=== PATIENT | male | born 1940 | race Caucasian/White ===

== ENCOUNTER 2018-07-20 14:58 | Emergency (ER) | payer OTHER ==
[2018-07-20] MEDS ORDERED: ONDANSETRON HCL 4 MG/2 ML VIAL ONE (15:56)
[2018-07-20] MEDS ORDERED: ACETAMINOPHEN EXTRA STRENGTH 500 MG TABLET ONE (15:56)
[2018-07-20] MEDS ORDERED: SODIUM CHLORIDE 0.9% 1000ML 1,000 ML IV ONE (15:56)
[2018-07-20 15:59] LABS: BASOPHILS % (AUTO) 0.5 % (0.0-5.0); EOSINOPHILS % (AUTO) 0.5 % (0.0-8.0); HEMATOCRIT 43.1 % (42-54); LYMPHOCYTES % (AUTO) 8.8 % (21.0-51.0); MEAN CORPUSCULAR HEMOGLOBIN 35.4 pg (27.0-33.0); MEAN CORPUSCULAR VOLUME 101.2 fL (79-99); NEUTROPHILS % (AUTO) 76.2 % (40.0-77.0); PLATELET COUNT (AUTO) 256 K/uL (130-400); RED BLOOD CELL COUNT(AUTO) 4.26 MIL/uL (4.50-6.20); RED CELL DISTRIBUTION WIDTH 12.8 % (11.0-15.5); WHITE BLOOD COUNT (AUTO) 8.3 K/uL (4.8-10.8)
[2018-07-20 16:08] LABS: CREATININE 1.1 mg/dL (0.5-1.5); POTASSIUM 4.7 mmol/L (3.5-5.1)
[2018-07-20 16:13] LABS: ALBUMIN 3.7 g/dL (3.5-5.0); BILIRUBIN,TOTAL 0.9 mg/dL (0.2-1.0); TOTAL PROTEIN, SERUM 7.6 g/dL (6.0-8.3)
== END 2018-07-20 17:53 | disposition home or self-care (01) ==
LOC: EDH 14:58
DX: A08.4 Viral intestinal infection, unspecified (principal); I10 Essential (primary) hypertension; I25.10 Atherosclerotic heart disease of native coronary artery without angina pectoris; E78.5 Hyperlipidemia, unspecified; J44.9 Chronic obstructive pulmonary disease, unspecified; Z86.73 Personal history of transient ischemic attack (TIA), and cerebral infarction without residual deficits
CPT/HCPCS: 36415; 71045; 80053; 85025; 87804 ×2; 93005; 96361; 96374; 99284; J2405; J7030

== ENCOUNTER 2018-09-11 10:40 | Observation (INO) | payer OTHER ==
[2018-09-11 11:02] LABS: BASOPHILS % (AUTO) 0.6 % (0.0-5.0); EOSINOPHILS % (AUTO) 1.4 % (0.0-8.0); HEMATOCRIT 41.2 % (42-54); LYMPHOCYTES % (AUTO) 16.1 % (21.0-51.0); MEAN CORPUSCULAR HGB CONC 34.3 g/dL (32.0-36.0); MEAN CORPUSCULAR VOLUME 101.9 fL (79-99); MONOCYTES % (AUTO) 12.5 % (3.0-13.0); NEUTROPHILS % (AUTO) 69.4 % (40.0-77.0); PLATELET COUNT (AUTO) 175 K/uL (130-400); RED BLOOD CELL COUNT(AUTO) 4.05 MIL/uL (4.50-6.20); WHITE BLOOD COUNT (AUTO) 7.3 K/uL (4.8-10.8)
[2018-09-11] MEDS ORDERED: ASPIRIN 325 MG TABLET ONE (11:02)
[2018-09-11 11:13] LABS: CREATININE 1.2 mg/dL (0.5-1.5); POTASSIUM 4.1 mmol/L (3.5-5.1)
[2018-09-11 11:24] LABS: ALBUMIN 3.7 g/dL (3.5-5.0); BILIRUBIN,TOTAL 0.9 mg/dL (0.2-1.0); TOTAL PROTEIN, SERUM 7.6 g/dL (6.0-8.3)
[2018-09-11 11:25] LABS: PARTIAL THROMBOPLASTIN TIME 26.6 SEC (26.3-35.5); PROTHROMBIN TIME 10.5 SEC (9.6-11.6)
[2018-09-11] MEDS ORDERED: NITROGLYCERIN 0.4 MG SL TAB SL ONE (12:43)
[2018-09-11] MEDS ORDERED: SODIUM CHLORIDE 0.9% 1000ML 1,000 ML IV SCH (13:10)
[2018-09-11] MEDS ORDERED: ACETAMINOPHEN 325 MG TAB PO PRN ×2 (13:15)
[2018-09-11] MEDS ORDERED: MORPHINE SULFATE 2 MG/ML 1ML SYG IV PRN (13:15)
[2018-09-11] MEDS ORDERED: ONDANSETRON HCL 4 MG/2 ML VIAL IV PRN (13:15)
[2018-09-11] MEDS ORDERED: HYDRALAZINE HCL 20 MG/ML VIAL IV PRN (13:15)
[2018-09-11] MEDS ORDERED: NITROGLYCERIN 1GM/1 INCH PACKET TD SCH (13:15)
[2018-09-11] MEDS ORDERED: LACTULOSE 20 GM/30 ML UDCUP PO PRN (13:15)
[2018-09-11 14:02] LABS: HEMOGLOBIN A1C 5.6 % (4.0-6.0)
[2018-09-11 14:04] LABS: MAGNESIUM 1.4 mg/dL (1.80-2.40); PHOSPHORUS 3.4 mg/dL (2.5-4.9)
[2018-09-11] MEDS ORDERED: MAGNESIUM 2GM PREMIX 50ML 100 ML IV ONE (14:38)
[2018-09-11 14:40] LABS: CREATINE KINASE, TOTAL 103 U/L (21-232); MYOGLOBIN 55 ng/mL (10-92); TROPONIN I < 0.04 ng/mL (0.00-0.06)
[2018-09-11] MEDS ORDERED: KETOROLAC TROMETHAMINE 30MG/ML IV SCH (15:30)
[2018-09-11] MEDS ORDERED: METOPROLOL TARTRATE 25 MG TAB PO SCH (21:00)
[2018-09-12] MEDS ORDERED: ENOXAPARIN SODIUM 40 MG/0.4 ML SYRINGE SQ SCH (09:00)
[2018-09-12] MEDS ORDERED: ASPIRIN 325 MG TABLET PO SCH (09:00)
== END 2018-09-11 18:48 | disposition home or self-care (01) ==
LOC: EDH 10:40 → EDHIP 13:10
PROVIDERS: ADMIT Internal Medicine; ATTEND Internal Medicine
DX: R07.89 Other chest pain (principal); E78.5 Hyperlipidemia, unspecified; G89.29 Other chronic pain; I10 Essential (primary) hypertension; I25.10 Atherosclerotic heart disease of native coronary artery without angina pectoris; J44.9 Chronic obstructive pulmonary disease, unspecified; I44.0 Atrioventricular block, first degree; Z87.891 Personal history of nicotine dependence; Z95.1 Presence of aortocoronary bypass graft; Z95.5 Presence of coronary angioplasty implant and graft; Z79.899 Other long term (current) drug therapy
CPT/HCPCS: 36415; 71045; 80053; 82550 ×2; 83036; 83735; 83874 ×2; 83880; 84100; 84484 ×2; 85025; 85610; 85730; 93005; 99284; G0378 ×6; J3475

== ENCOUNTER 2021-08-20 13:02 | Emergency (ER) | payer OTHER ==
[~2021-08-20] VITALS: Ht 182.9 cm; Wt 76.2 kg
[2021-08-20 13:35] LABS: BASOPHILS % (AUTO) 0.5 % (0.0-5.0); EOSINOPHILS % (AUTO) 3.1 % (0.0-8.0); HEMATOCRIT 40.4 % (42-54); LYMPHOCYTES % (AUTO) 13.9 % (21.0-51.0); MEAN CORPUSCULAR HEMOGLOBIN 33.3 pg (27.0-33.0); MEAN CORPUSCULAR HGB CONC 33.9 g/dL (32.0-36.0); MEAN CORPUSCULAR VOLUME 98.3 fL (79-99); MONOCYTES % (AUTO) 9.4 % (3.0-13.0); NEUTROPHILS % (AUTO) 72.8 % (40.0-77.0); PLATELET COUNT (AUTO) 200 K/uL (130-400); RED BLOOD CELL COUNT(AUTO) 4.11 MIL/uL (4.50-6.20); RED CELL DISTRIBUTION WIDTH 13.4 % (11.0-15.5); WHITE BLOOD COUNT (AUTO) 8.8 K/uL (4.8-10.8)
[2021-08-20 13:44] LABS: APPEARANCE,URINE Clear (CLEAR); BILIRUBIN,URINE Negative (NEGATIVE); COLOR,URINE Yellow (YELLOW); GLUCOSE, URINE (UA) Negative (NEGATIVE); KETONES,URINE Negative (NEGATIVE); LEUKOCYTE ESTERASE ,URINE Negative (NEGATIVE); NITRATE,URINE Negative (NEGATIVE); OCCULT BLOOD,URINE Negative (NEGATIVE); PROTEIN,URINE Negative (NEGATIVE)
[2021-08-20 13:48] LABS: BILIRUBIN,TOTAL 0.9 mg/dL (0.2-1.0); CREATININE 1.2 mg/dL (0.5-1.5); POTASSIUM 4.2 mmol/L (3.5-5.1); TOTAL PROTEIN, SERUM 7.5 g/dL (6.0-8.3)
[2021-08-20 14:06] LABS: B-TYPE NATRIURETIC PEPTIDE 436 pg/mL (0-100)
[2021-08-20] MEDS ORDERED: 0.9% NACL 500ML IV.SOLN 500 ML IV SCH (14:30)
[2021-08-20] MEDS ORDERED: POTASSIUM BICARB/CIT AC 25 MEQ TABLET.EFF PO ONE (14:30)
[2021-08-20] MEDS ORDERED: FUROSEMIDE 40MG VIAL IV ONE (14:30)
[2021-08-20] MEDS ORDERED: FURO-152 PO (14:43)
[2021-08-20 14:56] VITALS: BP 158/70
== END 2021-08-20 15:27 | disposition home or self-care (01) ==
LOC: EDH 13:02
DX: E87.70 Fluid overload, unspecified (principal); E87.1 Hypo-osmolality and hyponatremia; I48.91 Unspecified atrial fibrillation; E78.00 Pure hypercholesterolemia, unspecified; I10 Essential (primary) hypertension; J44.9 Chronic obstructive pulmonary disease, unspecified; I25.10 Atherosclerotic heart disease of native coronary artery without angina pectoris; Z79.899 Other long term (current) drug therapy; Z95.1 Presence of aortocoronary bypass graft
CPT/HCPCS: 36415; 71045; 80053; 81003; 83880; 84484; 85025; 93005; 99284; J1940; J7040

== ENCOUNTER 2022-12-26 11:58 | Inpatient (IN) | payer OTHER ==
[~2022-12-26] VITALS: Ht 188 cm; Wt 61.6 kg
[~2022-12-26 11:58] MED LIST: FURO-152 PO
[2022-12-26 12:38] LABS: BASOPHILS # (AUTO) 0.05 K/uL (0.00-0.20); BASOPHILS % (AUTO) 0.5 % (0.0-5.0); EOSINOPHILS # (AUTO) 0.18 K/uL (0.00-0.70); EOSINOPHILS % (AUTO) 1.9 % (0.0-8.0); HEMATOCRIT 37.9 % (42-54); IMMATURE GRANULOCYTE ABSOLUTE 0.04 K/uL (0-1); LYMPHOCYTES # (AUTO) 1.1 K/uL (1.0-4.8); LYMPHOCYTES % (AUTO) 11.3 % (21.0-51.0); MEAN CORPUSCULAR HEMOGLOBIN 31.9 pg (27.0-33.0); MEAN CORPUSCULAR VOLUME 96.7 fL (79-99); NEUTROPHILS # (AUTO) 6.9 K/uL (1.8-7.7); NEUTROPHILS % (AUTO) 74.9 % (40.0-77.0); PLATELET COUNT (AUTO) 305 K/uL (130-400); RED BLOOD CELL COUNT(AUTO) 3.92 MIL/uL (4.50-6.20); RED CELL DISTRIBUTION WIDTH 16.9 % (11.0-15.5); WHITE BLOOD COUNT (AUTO) 9.3 K/uL (4.8-10.8)
[2022-12-26 12:47] LABS: CREATININE 1.6 mg/dL (0.5-1.5); POTASSIUM 3.9 mmol/L (3.5-5.1)
[2022-12-26 12:52] LABS: ALBUMIN 2.8 g/dL (3.5-5.0); BILIRUBIN,TOTAL 0.8 mg/dL (0.2-1.0); TOTAL PROTEIN, SERUM 6.7 g/dL (6.0-8.3)
[2022-12-26] MEDS ORDERED: 0.9%NACL 1000ML 1,000 ML IV ONE (13:00)
[2022-12-26 13:30] LABS: INR 1.06 (0.85-1.15); PROTHROMBIN TIME 12.2 SEC (9.6-11.6)
[2022-12-26 13:32] LABS: PARTIAL THROMBOPLASTIN TIME 31.2 SEC (26.3-35.5)
[2022-12-26 14:12] LABS: APPEARANCE,URINE CLEAR (CLEAR); BILIRUBIN,URINE NEGATIVE (NEGATIVE); COLOR,URINE YELLOW (YELLOW); GLUCOSE, URINE (UA) NEGATIVE (NEGATIVE); KETONES,URINE NEGATIVE (NEGATIVE); LEUKOCYTE ESTERASE ,URINE NEGATIVE Leu/uL (NEGATIVE); NITRATE,URINE NEGATIVE (NEGATIVE); OCCULT BLOOD,URINE NEGATIVE (NEGATIVE); PROTEIN,URINE 30 mg/dL (NEGATIVE)
[2022-12-26 14:14] LABS: ADD UA MICROSCOPIC YES
[2022-12-26 14:16] LABS: RBC,URINE 0-1 /HPF (0-1); SQUAMOUS EPITHELIAL CELL,UR RARE /HPF (0-2); WBC,URINE 0-1 /HPF (0-1)
[2022-12-26] MEDS ORDERED: ZOSYN 3.375GM +NS 50ML IVPB ONE (14:30)
[2022-12-26] MEDS ORDERED: CEFEPIME HCL 2 GM VIAL IVPB SCH (15:30)
[2022-12-26] MEDS ORDERED: PHARMACY COMMUNICATION MISC SCH (15:30)
[2022-12-26] MEDS ORDERED: VANCOMYCIN PROTOCOL PER PHARMACY IV SCH (15:30)
[2022-12-26] MEDS ORDERED: VANCOMYCIN 1G/250ML KIT 250 ML IV SCH (16:00)
[2022-12-26 16:38] LABS: CRP QUANTITATIVE 20.2 mg/L (0.00-9.0)
[2022-12-26] MEDS ORDERED: ATOR-2 PO (18:28)
[2022-12-26] MEDS ORDERED: LISI10TA24 PO (18:28)
[2022-12-26] MEDS: CLONIDINE HCL 0.1 MG TABLET PO SCH ×2 (18:59→20:26)
[2022-12-26] MEDS: ONDANSETRON 4MG INJ IVP PRN (20:26)
[2022-12-26] MEDS ORDERED: MORPHINE 2 MG SYG IVP PRN (20:30)
[2022-12-26] MEDS: LISINOPRIL 10 MG TABLET PO SCH (22:30)
[2022-12-26] MEDS ORDERED: LORAZEPAM 2 MG/ML 1 ML VIAL IVP PRN (23:00)
[2022-12-26] MEDS ORDERED: CHLORDIAZEPOXIDE HCL 25 MG CAP PO PRN (23:00)
[2022-12-26] MEDS ORDERED: PHARMACY COMMUNICATION MISC PRN (23:00)
[2022-12-27] MEDS ORDERED: MAGN400T40 PO (08:29)
[2022-12-27] MEDS ORDERED: POTA99TA17 PO (08:29)
[2022-12-27] MEDS ORDERED: VITA15DR3 PO (08:29)
[2022-12-27] MEDS ORDERED: ASCO500T19 PO (08:29)
[2022-12-27] MEDS ORDERED: UBID100C10 PO (08:29)
[2022-12-27] MEDS ORDERED: VITA1CAP PO (08:29)
[2022-12-27] MEDS ORDERED: CHOL200013 PO (08:29)
[2022-12-27] MEDS ORDERED: AEC81 PO (08:29)
[2022-12-27] MEDS: LISINOPRIL 10 MG TABLET PO SCH ×2 (09:00→20:03)
[2022-12-27] MEDS ORDERED: 0.9% NACL 250ML 250 ML IV SCH (09:00)
[2022-12-27] MEDS: THIAMINE HCL 100 MG TABLET PO SCH (09:26)
[2022-12-27] MEDS: FOLIC ACID 1 MG TABLET PO SCH (09:26)
[2022-12-27] MEDS: CEFEPIME HCL 2 GM VIAL IVPB SCH ×2 (09:26→20:04)
[2022-12-27] MEDS: ATORVASTATIN 40 MG TABLET PO SCH (09:26)
[2022-12-27] MEDS: VANCOMYCIN 750MG VIAL IVPB SCH (10:21)
[2022-12-27 13:12] LABS: BASOPHILS # (AUTO) 0.02 K/uL (0.00-0.20); BASOPHILS % (AUTO) 0.2 % (0.0-5.0); EOSINOPHILS # (AUTO) 0.39 K/uL (0.00-0.70); EOSINOPHILS % (AUTO) 4.2 % (0.0-8.0); HEMATOCRIT 38.2 % (42-54); IMMATURE GRANULOCYTE ABSOLUTE 0.05 K/uL (0-1); LYMPHOCYTES # (AUTO) 0.7 K/uL (1.0-4.8); LYMPHOCYTES % (AUTO) 7.4 % (21.0-51.0); MEAN CORPUSCULAR HEMOGLOBIN 32.3 pg (27.0-33.0); MEAN CORPUSCULAR HGB CONC 32.2 g/dL (32.0-36.0); MEAN CORPUSCULAR VOLUME 100.3 fL (79-99); MONOCYTES # (AUTO) 0.8 K/uL (0.1-1.0); MONOCYTES % (AUTO) 8.1 % (3.0-13.0); NEUTROPHILS # (AUTO) 7.4 K/uL (1.8-7.7); NEUTROPHILS % (AUTO) 79.6 % (40.0-77.0); PLATELET COUNT (AUTO) 278 K/uL (130-400); RED BLOOD CELL COUNT(AUTO) 3.81 MIL/uL (4.50-6.20); WHITE BLOOD COUNT (AUTO) 9.3 K/uL (4.8-10.8)
[2022-12-27 13:24] LABS: CREATININE 1.5 mg/dL (0.5-1.5); POTASSIUM 4.4 mmol/L (3.5-5.1)
[2022-12-27 13:40] VITALS: BP 123/55; PULSE 58; RESP 24
[2022-12-27 16:00] VITALS: BP 111/56; PULSE 59; RESP 16
[2022-12-27] MEDS ORDERED: IOHEXOL-350 75 ML VIAL IV ONE (16:45)
[2022-12-27] MEDS ORDERED: IOHEXOL-350 50ML VIAL IV ONE (16:45)
[2022-12-27 19:00] VITALS: BP 130/69; PULSE 65; RESP 18
[2022-12-27 19:25] VITALS: O2SAT 97; O2SAT 98
[2022-12-27 23:46] VITALS: BP 130/77; PULSE 84; RESP 18
[2022-12-28 04:09] VITALS: BP 136/70; PULSE 73; RESP 19
[2022-12-28 08:00] VITALS: BP 129/80; PULSE 100; RESP 20; O2SAT 95
[2022-12-28 08:29] LABS: BASOPHILS # (AUTO) 0.05 K/uL (0.00-0.20); BASOPHILS % (AUTO) 0.5 % (0.0-5.0); EOSINOPHILS # (AUTO) 0.37 K/uL (0.00-0.70); EOSINOPHILS % (AUTO) 3.6 % (0.0-8.0); IMMATURE GRANULOCYTE ABSOLUTE 0.06 K/uL (0-1); LYMPHOCYTES # (AUTO) 0.9 K/uL (1.0-4.8); LYMPHOCYTES % (AUTO) 8.5 % (21.0-51.0); MEAN CORPUSCULAR HEMOGLOBIN 32.1 pg (27.0-33.0); MEAN CORPUSCULAR HGB CONC 32.2 g/dL (32.0-36.0); MEAN CORPUSCULAR VOLUME 99.8 fL (79-99); MONOCYTES # (AUTO) 0.8 K/uL (0.1-1.0); NEUTROPHILS % (AUTO) 78.8 % (40.0-77.0); PLATELET COUNT (AUTO) 315 K/uL (130-400); RED BLOOD CELL COUNT(AUTO) 4.11 MIL/uL (4.50-6.20); RED CELL DISTRIBUTION WIDTH 16.8 % (11.0-15.5); WHITE BLOOD COUNT (AUTO) 10.2 K/uL (4.8-10.8)
[2022-12-28 08:43] LABS: CREATININE 1.6 mg/dL (0.5-1.5); POTASSIUM 4.2 mmol/L (3.5-5.1); VANCOMYCIN TROUGH 10.3 UG/ML (10.0-20.0)
[2022-12-28] MEDS: FOLIC ACID 1 MG TABLET PO SCH (10:01)
[2022-12-28] MEDS: ATORVASTATIN 40 MG TABLET PO SCH (10:01)
[2022-12-28] MEDS: LISINOPRIL 10 MG TABLET PO SCH ×2 (10:01→19:41)
[2022-12-28] MEDS: THIAMINE HCL 100 MG TABLET PO SCH (10:01)
[2022-12-28] MEDS: VANCOMYCIN 750MG VIAL IVPB SCH (10:02)
[2022-12-28] MEDS: CEFEPIME HCL 2 GM VIAL IVPB SCH ×2 (10:02→19:41)
[2022-12-28 11:37] VITALS: BP 132/61; PULSE 71; RESP 18
[2022-12-28 16:00] VITALS: BP 138/73; PULSE 74; RESP 18
[2022-12-28 20:05] VITALS: BP 130/79; PULSE 74; RESP 20
[2022-12-28 23:39] VITALS: BP 151/79; PULSE 77; RESP 18
[2022-12-29] VITALS (7 sets, daily range): BP systolic 114–162; BP diastolic 59–86; PULSE 60–109; RESP 18–22; O2SAT 96
[2022-12-29 05:20] LABS: BASOPHILS # (AUTO) 0.05 K/uL (0.00-0.20); BASOPHILS % (AUTO) 0.5 % (0.0-5.0); EOSINOPHILS # (AUTO) 0.42 K/uL (0.00-0.70); EOSINOPHILS % (AUTO) 4.4 % (0.0-8.0); HEMATOCRIT 36.9 % (42-54); IMMATURE GRANULOCYTE ABSOLUTE 0.06 K/uL (0-1); LYMPHOCYTES # (AUTO) 0.7 K/uL (1.0-4.8); LYMPHOCYTES % (AUTO) 7.2 % (21.0-51.0); MEAN CORPUSCULAR HEMOGLOBIN 32.3 pg (27.0-33.0); MEAN CORPUSCULAR HGB CONC 32.5 g/dL (32.0-36.0); MEAN CORPUSCULAR VOLUME 99.2 fL (79-99); MONOCYTES # (AUTO) 0.9 K/uL (0.1-1.0); MONOCYTES % (AUTO) 9.6 % (3.0-13.0); NEUTROPHILS # (AUTO) 7.4 K/uL (1.8-7.7); NEUTROPHILS % (AUTO) 77.7 % (40.0-77.0); PLATELET COUNT (AUTO) 266 K/uL (130-400); RED BLOOD CELL COUNT(AUTO) 3.72 MIL/uL (4.50-6.20); RED CELL DISTRIBUTION WIDTH 16.7 % (11.0-15.5); WHITE BLOOD COUNT (AUTO) 9.5 K/uL (4.8-10.8)
[2022-12-29 05:51] LABS: ALBUMIN 2.4 g/dL (3.5-5.0); BILIRUBIN,TOTAL 0.6 mg/dL (0.2-1.0); CREATININE 1.5 mg/dL (0.5-1.5); POTASSIUM 4.4 mmol/L (3.5-5.1)
[2022-12-29] MEDS: CEFEPIME HCL 2 GM VIAL IVPB SCH ×2 (08:52→19:47)
[2022-12-29] MEDS: LISINOPRIL 10 MG TABLET PO SCH ×2 (08:52→19:48)
[2022-12-29] MEDS: ASPIRIN 81MG CHEW TAB PO SCH (08:52)
[2022-12-29] MEDS: FOLIC ACID 1 MG TABLET PO SCH (08:52)
[2022-12-29] MEDS: THIAMINE HCL 100 MG TABLET PO SCH (08:53)
[2022-12-29] MEDS: ATORVASTATIN 40 MG TABLET PO SCH (08:53)
[2022-12-29] MEDS: ENOXAPARIN SODIUM 30 MG/0.3 ML SQ SCH (08:53)
[2022-12-29] MEDS: VANCOMYCIN 750MG VIAL IVPB SCH (08:54)
[2022-12-30] VITALS (54 sets, daily range): BP systolic 88–189; BP diastolic 46–111; PULSE 42–108; RESP 13–26; TEMP 97.9; O2SAT 96–100
[2022-12-30 06:15] LABS: HEMATOCRIT 36.7 % (42-54); MEAN CORPUSCULAR HEMOGLOBIN 32.5 pg (27.0-33.0); MEAN CORPUSCULAR VOLUME 98.7 fL (79-99); RED BLOOD CELL COUNT(AUTO) 3.72 MIL/uL (4.50-6.20); RED CELL DISTRIBUTION WIDTH 16.6 % (11.0-15.5)
[2022-12-30 06:35] LABS: INR 1.05 (0.85-1.15); PROTHROMBIN TIME 12.1 SEC (9.6-11.6)
[2022-12-30 06:36] LABS: PARTIAL THROMBOPLASTIN TIME 31.3 SEC (26.3-35.5)
[2022-12-30 06:45] LABS: CREATININE 1.5 mg/dL (0.5-1.5); POTASSIUM 4.1 mmol/L (3.5-5.1)
[2022-12-30] MEDS: ASPIRIN 81MG CHEW TAB PO SCH (09:00)
[2022-12-30] MEDS: FOLIC ACID 1 MG TABLET PO SCH (09:00)
[2022-12-30] MEDS: THIAMINE HCL 100 MG TABLET PO SCH (09:00)
[2022-12-30] MEDS: ENOXAPARIN SODIUM 30 MG/0.3 ML SQ SCH (09:00)
[2022-12-30] MEDS: ATORVASTATIN 40 MG TABLET PO SCH (09:00)
[2022-12-30] MEDS: LISINOPRIL 10 MG TABLET PO SCH ×2 (09:00→20:16)
[2022-12-30] MEDS: CEFEPIME HCL 2 GM VIAL IVPB SCH (09:02)
[2022-12-30] MEDS ORDERED: GLYCOPYRROLATE 1 MG/5 ML SYRINGE ONE ×2 (09:28→11:15)
[2022-12-30] MEDS ORDERED: PROPOFOL 10 MG/ML 20ML VIAL IV ONE (09:28)
[2022-12-30] MEDS ORDERED: NEOSTIGMINE 5MG/5ML SYR IV ONE ×2 (09:28→11:15)
[2022-12-30] MEDS ORDERED: ONDANSETRON 4MG INJ ONE (09:28)
[2022-12-30] MEDS ORDERED: ROCURONIUM 10MG/1ML SYR 10 MG/ML ML ONE (09:28)
[2022-12-30] MEDS ORDERED: SUCCINYLCHOLINE 200MG/10ML SYR ONE (09:28)
[2022-12-30] MEDS ORDERED: LIDOCAINE PF 100MG/5ML (2%) SYRINGE 5ML ONE (09:28)
[2022-12-30] MEDS ORDERED: DEXAMETHASONE SOD PHOSPHATE 10MG/ML 1ML VIAL ONE (09:28)
[2022-12-30] MEDS ORDERED: FENTANYL CITRATE PF 50 MCG/1 ML 2ML VIAL ONE (09:29)
[2022-12-30 09:38] LABS: SARS-CoV-2, RNA, NAAT NEGATIVE SARS CoV-2 (NEGATIVE)
[2022-12-30] MEDS ORDERED: CEFAZOLIN SODIUM 1 GM VIAL ONE (09:49)
[2022-12-30] MEDS ORDERED: CEFAZOLIN SODIUM 2 GM VIAL IVPB ONE (09:50)
[2022-12-30] MEDS ORDERED: EPINEPHRINE PF 1MG (1:1,000) 1 MG/ML AMP ONE (10:30)
[2022-12-30] MEDS ORDERED: SODIUM BICARB 8.4% 50ML SYRINGE ONE (10:34)
[2022-12-30 10:56] LABS: ABG BASE EXCESS -7.6 mmol/L (-2.0-3.0); ABG OXYGEN SATURATION 99.1 % (95.0-99.0); ABG PCO2 49 mmHg (35-48); ABG PH 7.228 (7.35-7.450); CARBON MONOXIDE 0.3; HHb 0.9; PO2, ARTERIAL BG 202.4 mmHg (83.0-108.0); VENT MODE, BG OR (ROOM AIR)
[2022-12-30] MEDS ORDERED: ACETAMINOPHEN 325 MG TAB PO PRN (11:00)
[2022-12-30] MEDS ORDERED: TRAMADOL HCL 50 MG TABLET PO PRN ×2 (11:00)
[2022-12-30] MEDS ORDERED: DEXTROSE 50%-WATER 50 ML DISP.SYRIN IV ONE (11:05)
[2022-12-30] MEDS ORDERED: MEPERIDINE-PF 25 MG/ML SYG ONE (11:38)
[2022-12-30] MEDS ORDERED: IPRATROPIUM/ALBUTEROL SULFATE 3 ML SOLUTION IH ONE (12:30)
[2022-12-30] MEDS: ONDANSETRON 4MG INJ IVP PRN (12:33)
[2022-12-30] MEDS ORDERED: CEFAZOLIN SODIUM 2 GM VIAL IVPB PRN (13:00)
[2022-12-30 13:38] LABS: ABG BASE EXCESS -5.4 mmol/L (-2.0-3.0); ABG HCO3 22.6 mmol/L (21.0-28.0); ABG OXYGEN SATURATION 87.5 % (95.0-99.0); ABG PCO2 54 mmHg (35-48); ABG PH 7.241 (7.35-7.450); PO2, ARTERIAL BG 62.2 mmHg (83.0-108.0); VENT MODE, BG NRBM (ROOM AIR)
[2022-12-30] MEDS ORDERED: DEXMEDETOMIDINE 400MCG/NS100ML IV SCH (15:00)
[2022-12-30] MEDS ORDERED: CALCIUM GLUC 1GM 1 GM in 0.9%NACL 50ML 50 ML IV PRN (15:00)
[2022-12-30] MEDS ORDERED: POTASSIUM PHOS 15 mMOL+NS250ML 250 ML IV PRN (15:00)
[2022-12-30] MEDS ORDERED: 0.9% NACL 500ML IV.SOLN 500 ML IV SCH (15:00)
[2022-12-30 15:04] LABS: ABG BASE EXCESS -3.3 mmol/L (-2.0-3.0); ABG HCO3 21.5 mmol/L (21.0-28.0); ABG OXYGEN SATURATION 99.5 % (95.0-99.0); ABG PCO2 38 mmHg (35-48); CARBON MONOXIDE 1.1; DEVICE COMMENT RR RICHARD RN; HHb 0.5; PO2, ARTERIAL BG 272.5 mmHg (83.0-108.0); VENT MODE, BG BIPAP 12-5 (ROOM AIR)
[2022-12-30] MEDS: SODIUM BICARB 50MEQ 50ML VIAL IV PRN ×2 (15:30→20:13)
[2022-12-30] MEDS ORDERED: LORAZEPAM 2 MG/ML 1 ML VIAL IVP PRN (15:30)
[2022-12-30] MEDS ORDERED: CEFEPIME HCL 2 GM VIAL IVPB SCH (15:30)
[2022-12-30] MEDS ORDERED: HYDRALAZINE 20MG/ML VIAL IV PRN (15:30)
[2022-12-30] MEDS ORDERED: THIAMINE HCL 100 MG/ML 2ML VIAL IVP ONE (15:30)
[2022-12-30] MEDS ORDERED: LABETALOL 20MG VIAL IV PRN (15:30)
[2022-12-30] MEDS ORDERED: NICARDIPINE 25MG INJ 25 MG in 0.9% NACL 250ML 240 ML IV SCH (16:00)
[2022-12-30] MEDS: DOXYCYCLINE 100MG+NS 250ML IV SCH (17:04)
[2022-12-30] MEDS: SOLU-MEDROL 40MG VIAL IVP SCH (17:04)
[2022-12-30] MEDS: FUROSEMIDE 40MG VIAL IV SCH (17:05)
[2022-12-30] MEDS: CEFEPIME HCL 1 GM VIAL IVPB SCH (17:12)
[2022-12-30] MEDS ORDERED: IPRATROPIUM 0.5 MG/2.5 ML INH IH SCH (18:00)
[2022-12-30 18:02] LABS: INR 1.09 (0.85-1.15); PROTHROMBIN TIME 12.6 SEC (9.6-11.6)
[2022-12-30 18:04] LABS: PARTIAL THROMBOPLASTIN TIME 27.7 SEC (26.3-35.5)
[2022-12-30] MEDS: BUDESONIDE 0.5 MG/2 ML INH IH SCH (18:48)
[2022-12-30] MEDS: IPRATROPIUM/ALBUTEROL SULFATE 3 ML SOLUTION IH SCH ×2 (18:48→23:32)
[2022-12-30 19:21] LABS: ABG BASE EXCESS -2.5 mmol/L (-2.0-3.0); ABG HCO3 19.8 mmol/L (21.0-28.0); ABG OXYGEN SATURATION 95.3 % (95.0-99.0); ABG PCO2 27 mmHg (35-48); ABG PH 7.488 (7.35-7.450); CARBON MONOXIDE 0.5; HHb 4.7; PO2, ARTERIAL BG 75.6 mmHg (83.0-108.0)
[2022-12-30] MEDS ORDERED: CALCIUM GLUC 1GM/10ML VIAL ONE ×2 (19:50→22:27)
[2022-12-30] MEDS: POTASSIUM CHLORIDE 20MEQ/100ML 100 ML IV PRN ×2 (20:14→22:33)
[2022-12-30] MEDS: HYDRALAZINE 20MG/ML VIAL IV PRN (20:18)
[2022-12-30] MEDS ORDERED: VANCOMYCIN 750MG VIAL IVPB SCH (21:00)
[2022-12-30 22:21] LABS: ABG HCO3 25.8 mmol/L (21.0-28.0); ABG OXYGEN SATURATION 97.5 % (95.0-99.0); ABG PCO2 30 mmHg (35-48); HHb 2.5; PO2, ARTERIAL BG 94.4 mmHg (83.0-108.0)
[2022-12-31] VITALS (31 sets, daily range): BP systolic 97–161; BP diastolic 46–88; PULSE 45–108; RESP 13–22; O2SAT 92–100
[2022-12-31 01:01] LABS: ABG BASE EXCESS 3.8 mmol/L (-2.0-3.0); ABG HCO3 25.8 mmol/L (21.0-28.0); ABG OXYGEN SATURATION 98.8 % (95.0-99.0); ABG PCO2 31 mmHg (35-48); CARBON MONOXIDE 0.7; HHb 1.2; PO2, ARTERIAL BG 146.8 mmHg (83.0-108.0)
[2022-12-31] MEDS ORDERED: CALCIUM GLUC 1GM/10ML VIAL ONE (01:03)
[2022-12-31] MEDS: SOLU-MEDROL 40MG VIAL IVP SCH ×3 (01:10→15:13)
[2022-12-31] MEDS: POTASSIUM CHLORIDE 20MEQ/100ML 100 ML IV PRN (01:11)
[2022-12-31] MEDS: FUROSEMIDE 40MG VIAL IV SCH ×2 (03:15→15:13)
[2022-12-31] MEDS: DOXYCYCLINE 100MG+NS 250ML IV SCH ×2 (03:15→15:12)
[2022-12-31 04:08] LABS: ABG BASE EXCESS 5.5 mmol/L (-2.0-3.0); ABG HCO3 28.7 mmol/L (21.0-28.0); ABG PCO2 37 mmHg (35-48); ABG PH 7.509 (7.35-7.450); CARBON MONOXIDE 0.7; PO2, ARTERIAL BG 116.2 mmHg (83.0-108.0)
[2022-12-31] MEDS: CEFEPIME HCL 1 GM VIAL IVPB SCH ×2 (04:30→16:37)
[2022-12-31 05:21] LABS: HEMATOCRIT 36.1 % (42-54); MEAN CORPUSCULAR HEMOGLOBIN 32.3 pg (27.0-33.0); MEAN CORPUSCULAR HGB CONC 33.2 g/dL (32.0-36.0); MEAN CORPUSCULAR VOLUME 97.3 fL (79-99); RED BLOOD CELL COUNT(AUTO) 3.71 MIL/uL (4.50-6.20); RED CELL DISTRIBUTION WIDTH 16.5 % (11.0-15.5); WHITE BLOOD COUNT (AUTO) 12.7 K/uL (4.8-10.8)
[2022-12-31 05:34] LABS: INR 1.07 (0.85-1.15); PROTHROMBIN TIME 12.4 SEC (9.6-11.6)
[2022-12-31 05:35] LABS: PARTIAL THROMBOPLASTIN TIME 28.9 SEC (26.3-35.5)
[2022-12-31 05:58] LABS: ALBUMIN 2.6 g/dL (3.5-5.0); BILIRUBIN,TOTAL 0.6 mg/dL (0.2-1.0); CREATININE 1.7 mg/dL (0.5-1.5); MAGNESIUM 1.6 mg/dL (1.80-2.40); PHOSPHORUS 3.2 mg/dL (2.5-4.9); POTASSIUM 4.6 mmol/L (3.5-5.1); THYROID STIMULATING HORMONE 3.32 uIU/mL (0.36-3.74); TOTAL PROTEIN, SERUM 6.7 g/dL (6.0-8.3)
[2022-12-31] MEDS: IPRATROPIUM/ALBUTEROL SULFATE 3 ML SOLUTION IH SCH ×4 (07:07→23:01)
[2022-12-31] MEDS: BUDESONIDE 0.5 MG/2 ML INH IH SCH ×2 (07:08→18:30)
[2022-12-31 08:17] LABS: ABG BASE EXCESS 4.7 mmol/L (-2.0-3.0); ABG HCO3 27.7 mmol/L (21.0-28.0); ABG OXYGEN SATURATION 88.4 % (95.0-99.0); ABG PCO2 36 mmHg (35-48); CARBON MONOXIDE 0.9; DEVICE COMMENT LR LEO RN; HHb 11.5; PO2, ARTERIAL BG 51.6 mmHg (83.0-108.0); VENT MODE, BG 5LNC (ROOM AIR)
[2022-12-31] MEDS: PANTOPRAZOLE 40 MG/VIAL IVP SCH (09:10)
[2022-12-31] MEDS: LISINOPRIL 10 MG TABLET PO SCH ×2 (09:11→21:00)
[2022-12-31] MEDS: FOLIC ACID 1 MG TABLET PO SCH (09:11)
[2022-12-31] MEDS: ASPIRIN 81MG CHEW TAB PO SCH (09:11)
[2022-12-31] MEDS: ATORVASTATIN 40 MG TABLET PO SCH (09:11)
[2022-12-31] MEDS: THIAMINE HCL 100 MG TABLET PO SCH (09:11)
[2022-12-31] MEDS: ENOXAPARIN SODIUM 30 MG/0.3 ML SQ SCH (09:12)
[2022-12-31] MEDS: MAGNESIUM 2GM PREMIX 50ML 50 ML IV PRN (18:22)
[2022-12-31] MEDS ORDERED: PROMETHAZINE HCL 25 MG/ML 1ML AMPULE IM ONE (20:42)
[2022-12-31] MEDS ORDERED: MEPERIDINE-PF 25 MG/ML SYG ONE (20:42)
[2022-12-31] MEDS ORDERED: PROMETHAZINE HCL 25 MG/ML 1ML AMPULE IM SCH (22:00)
[2022-12-31] MEDS ORDERED: MEPERIDINE-PF 25 MG/ML SYG IM SCH (22:00)
[2023-01-01] VITALS (21 sets, daily range): BP systolic 131–161; BP diastolic 65–84; PULSE 52–109; RESP 18–24; O2SAT 96–100
[2023-01-01] MEDS: SOLU-MEDROL 40MG VIAL IVP SCH ×3 (00:40→20:59)
[2023-01-01] MEDS: FUROSEMIDE 40MG VIAL IV SCH ×2 (03:54→15:53)
[2023-01-01] MEDS: DOXYCYCLINE 100MG+NS 250ML IV SCH ×2 (03:54→15:53)
[2023-01-01] MEDS: CEFEPIME HCL 1 GM VIAL IVPB SCH ×2 (03:54→16:50)
[2023-01-01] MEDS: IPRATROPIUM/ALBUTEROL SULFATE 3 ML SOLUTION IH SCH ×4 (07:11→23:47)
[2023-01-01] MEDS: BUDESONIDE 0.5 MG/2 ML INH IH SCH ×2 (07:12→18:43)
[2023-01-01] MEDS: ASPIRIN 81MG CHEW TAB PO SCH (08:58)
[2023-01-01] MEDS: ATORVASTATIN 40 MG TABLET PO SCH (08:58)
[2023-01-01] MEDS: THIAMINE HCL 100 MG TABLET PO SCH (08:58)
[2023-01-01] MEDS: PANTOPRAZOLE 40 MG/VIAL IVP SCH (08:58)
[2023-01-01] MEDS: FOLIC ACID 1 MG TABLET PO SCH (08:59)
[2023-01-01] MEDS: LISINOPRIL 10 MG TABLET PO SCH ×2 (08:59→20:59)
[2023-01-01] MEDS: ENOXAPARIN SODIUM 30 MG/0.3 ML SQ SCH (09:01)
[2023-01-02] VITALS (15 sets, daily range): BP systolic 114–156; BP diastolic 51–92; PULSE 63–116; RESP 18–24; O2SAT 94–99
[2023-01-02] MEDS: ONDANSETRON 4MG INJ IVP PRN ×2 (03:18→08:40)
[2023-01-02] MEDS: DOXYCYCLINE 100MG+NS 250ML IV SCH ×2 (04:08→15:40)
[2023-01-02] MEDS: FUROSEMIDE 40MG VIAL IV SCH ×2 (04:08→15:40)
[2023-01-02] MEDS: CEFEPIME HCL 1 GM VIAL IVPB SCH ×2 (04:09→15:43)
[2023-01-02 04:24] LABS: ABG BASE EXCESS 5.5 mmol/L (-2.0-3.0); ABG HCO3 28.8 mmol/L (21.0-28.0); ABG OXYGEN SATURATION 95.7 % (95.0-99.0); ABG PCO2 38 mmHg (35-48); PO2, ARTERIAL BG 71.8 mmHg (83.0-108.0); VENT MODE, BG OXYMIZER (ROOM AIR)
[2023-01-02] MEDS: SOLU-MEDROL 40MG VIAL IVP SCH ×2 (06:14→08:41)
[2023-01-02] MEDS: BUDESONIDE 0.5 MG/2 ML INH IH SCH ×2 (06:40→18:27)
[2023-01-02] MEDS: IPRATROPIUM/ALBUTEROL SULFATE 3 ML SOLUTION IH SCH ×4 (06:40→22:57)
[2023-01-02] MEDS: FOLIC ACID 1 MG TABLET PO SCH (08:41)
[2023-01-02] MEDS: PANTOPRAZOLE 40 MG/VIAL IVP SCH (08:41)
[2023-01-02] MEDS: ASPIRIN 81MG CHEW TAB PO SCH (08:41)
[2023-01-02] MEDS: LISINOPRIL 10 MG TABLET PO SCH (08:41)
[2023-01-02] MEDS: THIAMINE HCL 100 MG TABLET PO SCH (08:41)
[2023-01-02] MEDS: ENOXAPARIN SODIUM 30 MG/0.3 ML SQ SCH (08:42)
[2023-01-02] MEDS: ATORVASTATIN 40 MG TABLET PO SCH (08:42)
[2023-01-02 11:34] LABS: HEMATOCRIT 31.3 % (42-54); MEAN CORPUSCULAR HEMOGLOBIN 32.7 pg (27.0-33.0); MEAN CORPUSCULAR HGB CONC 33.2 g/dL (32.0-36.0); MEAN CORPUSCULAR VOLUME 98.4 fL (79-99); PLATELET COUNT (AUTO) 233 K/uL (130-400); RED BLOOD CELL COUNT(AUTO) 3.18 MIL/uL (4.50-6.20); RED CELL DISTRIBUTION WIDTH 16.7 % (11.0-15.5); WHITE BLOOD COUNT (AUTO) 19.5 K/uL (4.8-10.8)
[2023-01-02 12:22] LABS: LYMPHOCYTES % (MANUAL) 3 % (22-44); MAN.DIFF COMMENT-IMPRESSION MANUAL DIFFERENTIAL; MONOCYTES % (MANUAL) 4 % (2-9); PLATELET MORPHOLOGY COMMENT ADEQUATE; SEGMENTED NEUTROPHILS % 93 % (40-70); TOTAL CELLS COUNTED 100
[2023-01-02 13:05] LABS: ALBUMIN 2.5 g/dL (3.5-5.0); BILIRUBIN,TOTAL 0.4 mg/dL (0.2-1.0); CREATININE 2.5 mg/dL (0.5-1.5); POTASSIUM 3.5 mmol/L (3.5-5.1); TOTAL PROTEIN, SERUM 6.1 g/dL (6.0-8.3)
[2023-01-02] MEDS: MAGNESIUM 2GM PREMIX 50ML 50 ML IV PRN (13:18)
[2023-01-02] MEDS: POTASSIUM CHLORIDE 20MEQ/100ML 100 ML IV PRN (15:42)
[2023-01-02] MEDS: 0.9%NACL 1000ML 1,000 ML IV SCH (17:38)
[2023-01-03] VITALS (16 sets, daily range): BP systolic 112–160; BP diastolic 62–95; PULSE 54–110; RESP 18–24; O2SAT 94–96
[2023-01-03] MEDS: 0.9%NACL 1000ML 1,000 ML IV SCH ×2 (03:44→14:16)
[2023-01-03] MEDS: CEFEPIME HCL 1 GM VIAL IVPB SCH ×2 (03:57→16:05)
[2023-01-03] MEDS: DOXYCYCLINE 100MG+NS 250ML IV SCH ×2 (04:01→16:05)
[2023-01-03 04:33] LABS: HEMATOCRIT 29.4 % (42-54); MEAN CORPUSCULAR HEMOGLOBIN 32.4 pg (27.0-33.0); MEAN CORPUSCULAR VOLUME 101.4 fL (79-99); RED BLOOD CELL COUNT(AUTO) 2.9 MIL/uL (4.50-6.20); RED CELL DISTRIBUTION WIDTH 16.4 % (11.0-15.5); WHITE BLOOD COUNT (AUTO) 18.6 K/uL (4.8-10.8)
[2023-01-03 04:47] LABS: ALBUMIN 2.3 g/dL (3.5-5.0); BILIRUBIN,TOTAL 0.5 mg/dL (0.2-1.0); CREATININE 2.2 mg/dL (0.5-1.5); MAGNESIUM 1.8 mg/dL (1.80-2.40); POTASSIUM 3.5 mmol/L (3.5-5.1); TOTAL PROTEIN, SERUM 5.7 g/dL (6.0-8.3)
[2023-01-03] MEDS: MAGNESIUM 2GM PREMIX 50ML 50 ML IV PRN (06:04)
[2023-01-03] MEDS: BUDESONIDE 0.5 MG/2 ML INH IH SCH ×2 (06:49→19:25)
[2023-01-03] MEDS: IPRATROPIUM/ALBUTEROL SULFATE 3 ML SOLUTION IH SCH ×4 (06:49→23:21)
[2023-01-03] MEDS: ASPIRIN 81MG CHEW TAB PO SCH (08:58)
[2023-01-03] MEDS: ATORVASTATIN 40 MG TABLET PO SCH (08:58)
[2023-01-03] MEDS: PREDNISONE 20 MG TABLET PO SCH (08:58)
[2023-01-03] MEDS: THIAMINE HCL 100 MG TABLET PO SCH (08:58)
[2023-01-03] MEDS: PANTOPRAZOLE 40 MG/VIAL IVP SCH (08:58)
[2023-01-03] MEDS: FOLIC ACID 1 MG TABLET PO SCH (08:59)
[2023-01-03] MEDS: ENOXAPARIN SODIUM 30 MG/0.3 ML SQ SCH (09:00)
[2023-01-03] MEDS: POTASSIUM CHLORIDE 20MEQ/100ML 100 ML IV PRN (09:01)
[2023-01-03] MEDS: CLOPIDOGREL 75MG TAB PO SCH (11:42)
[2023-01-04] VITALS (12 sets, daily range): BP systolic 140–155; BP diastolic 84–97; PULSE 61–105; RESP 18–20; O2SAT 91–93
[2023-01-04] MEDS: DOXYCYCLINE 100MG+NS 250ML IV SCH ×2 (04:09→14:54)
[2023-01-04] MEDS: CEFEPIME HCL 1 GM VIAL IVPB SCH ×2 (04:14→16:45)
[2023-01-04 05:00] LABS: HEMATOCRIT 32.3 % (42-54); MEAN CORPUSCULAR HEMOGLOBIN 32.1 pg (27.0-33.0); MEAN CORPUSCULAR HGB CONC 32.5 g/dL (32.0-36.0); MEAN CORPUSCULAR VOLUME 98.8 fL (79-99); RED BLOOD CELL COUNT(AUTO) 3.27 MIL/uL (4.50-6.20); RED CELL DISTRIBUTION WIDTH 16.3 % (11.0-15.5); WHITE BLOOD COUNT (AUTO) 19.2 K/uL (4.8-10.8)
[2023-01-04 05:18] LABS: ALBUMIN 2.4 g/dL (3.5-5.0); BILIRUBIN,TOTAL 0.5 mg/dL (0.2-1.0); CREATININE 2.4 mg/dL (0.5-1.5); MAGNESIUM 2.1 mg/dL (1.80-2.40); POTASSIUM 3.6 mmol/L (3.5-5.1); TOTAL PROTEIN, SERUM 5.9 g/dL (6.0-8.3)
[2023-01-04] MEDS: POTASSIUM CHLORIDE 20MEQ/100ML 100 ML IV PRN (06:30)
[2023-01-04] MEDS: BUDESONIDE 0.5 MG/2 ML INH IH SCH ×2 (07:09→19:01)
[2023-01-04] MEDS: IPRATROPIUM/ALBUTEROL SULFATE 3 ML SOLUTION IH SCH ×4 (07:09→23:10)
[2023-01-04] MEDS: PANTOPRAZOLE 40 MG/VIAL IVP SCH (08:32)
[2023-01-04] MEDS: ATORVASTATIN 40 MG TABLET PO SCH (08:33)
[2023-01-04] MEDS: PREDNISONE 20 MG TABLET PO SCH (08:33)
[2023-01-04] MEDS: ASPIRIN 81MG CHEW TAB PO SCH (08:33)
[2023-01-04] MEDS: FOLIC ACID 1 MG TABLET PO SCH (08:33)
[2023-01-04] MEDS: THIAMINE HCL 100 MG TABLET PO SCH (08:34)
[2023-01-04] MEDS: ENOXAPARIN SODIUM 30 MG/0.3 ML SQ SCH (08:34)
[2023-01-04] MEDS: CLOPIDOGREL 75MG TAB PO SCH (08:34)
[2023-01-04 14:35] LABS: % IRON SATURATION 17.2 % (30-44)
[2023-01-04 14:43] LABS: APPEARANCE,URINE CLOUDY (CLEAR); BILIRUBIN,URINE NEGATIVE (NEGATIVE); COLOR,URINE LIGHT-YELLOW (YELLOW); GLUCOSE, URINE (UA) NEGATIVE (NEGATIVE); KETONES,URINE NEGATIVE (NEGATIVE); LEUKOCYTE ESTERASE ,URINE NEGATIVE Leu/uL (NEGATIVE); NITRATE,URINE NEGATIVE (NEGATIVE); OCCULT BLOOD,URINE NEGATIVE (NEGATIVE); PH,URINE 6.5 (5.0-8.0); PROTEIN,URINE 70 mg/dL (NEGATIVE); UROBILINOGEN,URINE 0.2 mg/dL (0.2-1.0)
[2023-01-04 14:44] LABS: ADD UA MICROSCOPIC YES
[2023-01-04 14:49] LABS: BACTERIA,URINE RARE /HPF (None Seen); HYALINE CASTS, URINE 51-100 /LPF (0-1 /LPF); MUCUS,URINE RARE LPF (None Seen); SQUAMOUS EPITHELIAL CELL,UR RARE /HPF (0-2)
[2023-01-05] VITALS (13 sets, daily range): BP systolic 128–164; BP diastolic 68–90; PULSE 55–109; RESP 18–20; O2SAT 92–97
[2023-01-05] MEDS: DOXYCYCLINE 100MG+NS 250ML IV SCH ×2 (02:32→14:42)
[2023-01-05 04:18] LABS: HEMATOCRIT 29.6 % (42-54); MEAN CORPUSCULAR HEMOGLOBIN 32.2 pg (27.0-33.0); MEAN CORPUSCULAR HGB CONC 33.1 g/dL (32.0-36.0); MEAN CORPUSCULAR VOLUME 97.4 fL (79-99); PLATELET COUNT (AUTO) 205 K/uL (130-400); RED BLOOD CELL COUNT(AUTO) 3.04 MIL/uL (4.50-6.20); RED CELL DISTRIBUTION WIDTH 16.1 % (11.0-15.5); WHITE BLOOD COUNT (AUTO) 16.8 K/uL (4.8-10.8)
[2023-01-05] MEDS: CEFEPIME HCL 1 GM VIAL IVPB SCH ×2 (04:18→16:45)
[2023-01-05 04:24] LABS: ALBUMIN 2.4 g/dL (3.5-5.0); BILIRUBIN,TOTAL 0.6 mg/dL (0.2-1.0); CREATININE 2.3 mg/dL (0.5-1.5); MAGNESIUM 1.9 mg/dL (1.80-2.40); PHOSPHORUS 2.6 mg/dL (2.5-4.9); POTASSIUM 3.8 mmol/L (3.5-5.1); TOTAL PROTEIN, SERUM 5.7 g/dL (6.0-8.3); URIC ACID 5.9 mg/dL (2.6-7.2)
[2023-01-05] MEDS: MAGNESIUM 2GM PREMIX 50ML 50 ML IV PRN (04:51)
[2023-01-05 06:13] LABS: LYMPHOCYTES % (MANUAL) 9 % (22-44); MAN.DIFF COMMENT-IMPRESSION MANUAL DIFFERENTIAL; MONOCYTES % (MANUAL) 5 % (2-9); PLATELET MORPHOLOGY COMMENT ADEQUATE; SEGMENTED NEUTROPHILS % 86 % (40-70); TOTAL CELLS COUNTED 100
[2023-01-05 06:14] LABS: WBC MORPHOLOGY REACTIVE LYMPHS 1+
[2023-01-05] MEDS: IPRATROPIUM/ALBUTEROL SULFATE 3 ML SOLUTION IH SCH ×2 (07:04→18:38)
[2023-01-05] MEDS: BUDESONIDE 0.5 MG/2 ML INH IH SCH ×2 (07:04→18:38)
[2023-01-05] MEDS: ENOXAPARIN SODIUM 30 MG/0.3 ML SQ SCH ×2 (09:00→09:17)
[2023-01-05] MEDS: CLOPIDOGREL 75MG TAB PO SCH ×2 (09:00→09:17)
[2023-01-05] MEDS: PANTOPRAZOLE 40 MG/VIAL IVP SCH (09:16)
[2023-01-05] MEDS: FOLIC ACID 1 MG TABLET PO SCH (09:17)
[2023-01-05] MEDS: ASPIRIN 81MG CHEW TAB PO SCH (09:17)
[2023-01-05] MEDS: Vitamin B Complex/Vit C/Folic Acid PO SCH (09:17)
[2023-01-05] MEDS: ATORVASTATIN 40 MG TABLET PO SCH (09:17)
[2023-01-05] MEDS: THIAMINE HCL 100 MG TABLET PO SCH (09:18)
[2023-01-05] MEDS: PREDNISONE 20 MG TABLET PO SCH (09:18)
[2023-01-05] MEDS: HYDROCODONE/ACETAMINOPHEN 5/325 MG TAB PO PRN ×2 (11:20→17:17)
[2023-01-05] MEDS ORDERED: COMPOUND IV MISC 1 EACH IVSOLN MISC PRN (14:30)
[2023-01-05] MEDS: IRON SUCROSE COMPLEX 100 MG/5 ML VIAL IVP SCH (14:42)
[2023-01-05] MEDS: FUROSEMIDE 20MG VIAL IV SCH (16:46)
[2023-01-06] VITALS (15 sets, daily range): BP systolic 122–160; BP diastolic 56–87; PULSE 51–101; RESP 18–20; O2SAT 94–96
[2023-01-06] MEDS: DOXYCYCLINE 100MG+NS 250ML IV SCH ×2 (02:31→14:41)
[2023-01-06] MEDS: CEFEPIME HCL 1 GM VIAL IVPB SCH ×2 (04:34→16:43)
[2023-01-06] MEDS: FUROSEMIDE 20MG VIAL IV SCH ×2 (04:34→14:43)
[2023-01-06 05:00] LABS: BASOPHILS # (AUTO) 0.01 K/uL (0.00-0.20); BASOPHILS % (AUTO) 0.1 % (0.0-5.0); HEMATOCRIT 29.1 % (42-54); IMMATURE GRANULOCYTE ABSOLUTE 0.19 K/uL (0-1); LYMPHOCYTES # (AUTO) 1.2 K/uL (1.0-4.8); LYMPHOCYTES % (AUTO) 7.7 % (21.0-51.0); MEAN CORPUSCULAR HEMOGLOBIN 31.9 pg (27.0-33.0); MEAN CORPUSCULAR HGB CONC 32.6 g/dL (32.0-36.0); MEAN CORPUSCULAR VOLUME 97.7 fL (79-99); MONOCYTES % (AUTO) 6.7 % (3.0-13.0); NEUTROPHILS % (AUTO) 84.3 % (40.0-77.0); PLATELET COUNT (AUTO) 197 K/uL (130-400); RED BLOOD CELL COUNT(AUTO) 2.98 MIL/uL (4.50-6.20); WHITE BLOOD COUNT (AUTO) 15.4 K/uL (4.8-10.8)
[2023-01-06 05:06] LABS: ALBUMIN 2.4 g/dL (3.5-5.0); BILIRUBIN,TOTAL 0.6 mg/dL (0.2-1.0); CREATININE 2.3 mg/dL (0.5-1.5); MAGNESIUM 2.2 mg/dL (1.80-2.40); PHOSPHORUS 3.7 mg/dL (2.5-4.9); POTASSIUM 4.1 mmol/L (3.5-5.1); TOTAL PROTEIN, SERUM 5.8 g/dL (6.0-8.3)
[2023-01-06] MEDS: BUDESONIDE 0.5 MG/2 ML INH IH SCH ×2 (07:18→20:04)
[2023-01-06] MEDS: IPRATROPIUM/ALBUTEROL SULFATE 3 ML SOLUTION IH SCH ×2 (07:18→20:04)
[2023-01-06] MEDS: CLOPIDOGREL 75MG TAB PO SCH (09:00)
[2023-01-06] MEDS: ATORVASTATIN 40 MG TABLET PO SCH (09:05)
[2023-01-06] MEDS: ASPIRIN 81MG CHEW TAB PO SCH (09:05)
[2023-01-06] MEDS: PREDNISONE 20 MG TABLET PO SCH (09:05)
[2023-01-06] MEDS: Vitamin B Complex/Vit C/Folic Acid PO SCH (09:05)
[2023-01-06] MEDS: THIAMINE HCL 100 MG TABLET PO SCH (09:06)
[2023-01-06] MEDS: ENOXAPARIN SODIUM 30 MG/0.3 ML SQ SCH (09:06)
[2023-01-06] MEDS: PANTOPRAZOLE 40 MG/VIAL IVP SCH (09:06)
[2023-01-06] MEDS: IRON SUCROSE COMPLEX 100 MG/5 ML VIAL IVP SCH (14:41)
[2023-01-07] VITALS (12 sets, daily range): BP systolic 129–174; BP diastolic 51–88; PULSE 50–94; RESP 16–20; O2SAT 97–100
[2023-01-07] MEDS: DOXYCYCLINE 100MG+NS 250ML IV SCH ×2 (03:57→16:17)
[2023-01-07 04:15] LABS: HEMATOCRIT 28.5 % (42-54); MEAN CORPUSCULAR HEMOGLOBIN 31.4 pg (27.0-33.0); MEAN CORPUSCULAR HGB CONC 32.6 g/dL (32.0-36.0); MEAN CORPUSCULAR VOLUME 96.3 fL (79-99); RED BLOOD CELL COUNT(AUTO) 2.96 MIL/uL (4.50-6.20); RED CELL DISTRIBUTION WIDTH 15.9 % (11.0-15.5); WHITE BLOOD COUNT (AUTO) 18.2 K/uL (4.8-10.8)
[2023-01-07] MEDS: FUROSEMIDE 20MG VIAL IV SCH ×2 (04:26→16:17)
[2023-01-07] MEDS: CEFEPIME HCL 1 GM VIAL IVPB SCH ×2 (04:26→16:57)
[2023-01-07 04:51] LABS: ALBUMIN 2.4 g/dL (3.5-5.0); BILIRUBIN,TOTAL 0.5 mg/dL (0.2-1.0); CREATININE 2.4 mg/dL (0.5-1.5); MAGNESIUM 1.9 mg/dL (1.80-2.40); POTASSIUM 3.9 mmol/L (3.5-5.1); TOTAL PROTEIN, SERUM 5.7 g/dL (6.0-8.3)
[2023-01-07] MEDS: MAGNESIUM 2GM PREMIX 50ML 50 ML IV PRN (06:43)
[2023-01-07] MEDS: IPRATROPIUM/ALBUTEROL SULFATE 3 ML SOLUTION IH SCH ×2 (07:23→19:29)
[2023-01-07] MEDS: BUDESONIDE 0.5 MG/2 ML INH IH SCH ×2 (07:23→19:29)
[2023-01-07] MEDS: ASPIRIN 81MG CHEW TAB PO SCH (09:44)
[2023-01-07] MEDS: ATORVASTATIN 40 MG TABLET PO SCH (09:44)
[2023-01-07] MEDS: CLOPIDOGREL 75MG TAB PO SCH (09:45)
[2023-01-07] MEDS: PREDNISONE 20 MG TABLET PO SCH (09:45)
[2023-01-07] MEDS: THIAMINE HCL 100 MG TABLET PO SCH (09:45)
[2023-01-07] MEDS: ENOXAPARIN SODIUM 30 MG/0.3 ML SQ SCH (09:45)
[2023-01-07] MEDS: PANTOPRAZOLE 40 MG/VIAL IVP SCH (09:45)
[2023-01-07] MEDS: Vitamin B Complex/Vit C/Folic Acid PO SCH (09:45)
[2023-01-07] MEDS: IRON SUCROSE COMPLEX 100 MG/5 ML VIAL IVP SCH (16:17)
[2023-01-07] MEDS ORDERED: HYDROCODONE/ACETAMINOPHEN 5/325 MG TAB PO PRN (16:30)
[2023-01-07] MEDS: HYDRALAZINE 20MG/ML VIAL IV PRN (17:11)
[2023-01-08] VITALS (13 sets, daily range): BP systolic 120–191; BP diastolic 58–97; PULSE 64–94; RESP 18–20; O2SAT 95–96
[2023-01-08] MEDS: DOXYCYCLINE 100MG+NS 250ML IV SCH ×2 (03:48→15:40)
[2023-01-08] MEDS: FUROSEMIDE 20MG VIAL IV SCH (03:49)
[2023-01-08] MEDS: CEFEPIME HCL 1 GM VIAL IVPB SCH ×2 (03:49→15:39)
[2023-01-08 04:18] LABS: HEMATOCRIT 28.5 % (42-54); MEAN CORPUSCULAR HEMOGLOBIN 32.2 pg (27.0-33.0); MEAN CORPUSCULAR HGB CONC 33.7 g/dL (32.0-36.0); MEAN CORPUSCULAR VOLUME 95.6 fL (79-99); NUCLEATED RED BLOOD CELLS 0.2 % (0.0-0.19); RED BLOOD CELL COUNT(AUTO) 2.98 MIL/uL (4.50-6.20); RED CELL DISTRIBUTION WIDTH 16.3 % (11.0-15.5); WHITE BLOOD COUNT (AUTO) 17.3 K/uL (4.8-10.8)
[2023-01-08 04:56] LABS: ALBUMIN 2.5 g/dL (3.5-5.0); BILIRUBIN,TOTAL 0.6 mg/dL (0.2-1.0); CREATININE 2.5 mg/dL (0.5-1.5); POTASSIUM 3.1 mmol/L (3.5-5.1)
[2023-01-08] MEDS: POTASSIUM CHLORIDE 20MEQ/100ML 100 ML IV PRN (05:14)
[2023-01-08] MEDS: BUDESONIDE 0.5 MG/2 ML INH IH SCH ×2 (06:56→18:54)
[2023-01-08] MEDS: IPRATROPIUM/ALBUTEROL SULFATE 3 ML SOLUTION IH SCH ×2 (06:56→18:54)
[2023-01-08] MEDS: PANTOPRAZOLE 40 MG/VIAL IVP SCH (09:23)
[2023-01-08] MEDS: ASPIRIN 81MG CHEW TAB PO SCH (09:25)
[2023-01-08] MEDS: THIAMINE HCL 100 MG TABLET PO SCH (09:25)
[2023-01-08] MEDS: ATORVASTATIN 40 MG TABLET PO SCH (09:25)
[2023-01-08] MEDS: Vitamin B Complex/Vit C/Folic Acid PO SCH (09:25)
[2023-01-08] MEDS: CLOPIDOGREL 75MG TAB PO SCH (09:26)
[2023-01-08] MEDS: ENOXAPARIN SODIUM 30 MG/0.3 ML SQ SCH (09:27)
[2023-01-08] MEDS: POTASSIUM CHLORIDE 20 MEQ/100 ML BAG IV SCH (09:28)
[2023-01-08] MEDS: FUROSEMIDE 40MG VIAL IV SCH (15:48)
[2023-01-09] VITALS (12 sets, daily range): BP systolic 109–152; BP diastolic 56–89; PULSE 61–88; RESP 18–20; O2SAT 95–96
[2023-01-09 04:21] LABS: BASOPHILS # (AUTO) 0.02 K/uL (0.00-0.20); BASOPHILS % (AUTO) 0.1 % (0.0-5.0); EOSINOPHILS # (AUTO) 0.13 K/uL (0.00-0.70); EOSINOPHILS % (AUTO) 0.6 % (0.0-8.0); HEMATOCRIT 31.4 % (42-54); IMMATURE GRANULOCYTE ABSOLUTE 0.35 K/uL (0-1); LYMPHOCYTES # (AUTO) 2.3 K/uL (1.0-4.8); LYMPHOCYTES % (AUTO) 11.4 % (21.0-51.0); MEAN CORPUSCULAR HEMOGLOBIN 32.2 pg (27.0-33.0); MEAN CORPUSCULAR HGB CONC 33.4 g/dL (32.0-36.0); MEAN CORPUSCULAR VOLUME 96.3 fL (79-99); MONOCYTES # (AUTO) 1.9 K/uL (0.1-1.0); MONOCYTES % (AUTO) 9.5 % (3.0-13.0); NEUTROPHILS # (AUTO) 15.4 K/uL (1.8-7.7); NEUTROPHILS % (AUTO) 76.7 % (40.0-77.0); NUCLEATED RED BLOOD CELLS 0.2 % (0.0-0.19); PLATELET COUNT (AUTO) 224 K/uL (130-400); RED BLOOD CELL COUNT(AUTO) 3.26 MIL/uL (4.50-6.20); RED CELL DISTRIBUTION WIDTH 16.2 % (11.0-15.5); WHITE BLOOD COUNT (AUTO) 20.1 K/uL (4.8-10.8)
[2023-01-09] MEDS: CEFEPIME HCL 1 GM VIAL IVPB SCH ×2 (04:24→15:39)
[2023-01-09] MEDS: FUROSEMIDE 40MG VIAL IV SCH ×2 (04:24→15:45)
[2023-01-09 04:34] LABS: ALBUMIN 2.6 g/dL (3.5-5.0); BILIRUBIN,TOTAL 0.9 mg/dL (0.2-1.0); CREATININE 2.6 mg/dL (0.5-1.5); MAGNESIUM 1.7 mg/dL (1.80-2.40); POTASSIUM 3.2 mmol/L (3.5-5.1); TOTAL PROTEIN, SERUM 6.3 g/dL (6.0-8.3)
[2023-01-09] MEDS: DOXYCYCLINE 100MG+NS 250ML IV SCH ×2 (04:54→15:42)
[2023-01-09] MEDS: POTASSIUM CHLORIDE 20MEQ/100ML 100 ML IV PRN ×2 (04:55→21:05)
[2023-01-09] MEDS: MAGNESIUM 2GM PREMIX 50ML 50 ML IV PRN (04:56)
[2023-01-09] MEDS: BUDESONIDE 0.5 MG/2 ML INH IH SCH ×2 (07:16→19:07)
[2023-01-09] MEDS: IPRATROPIUM/ALBUTEROL SULFATE 3 ML SOLUTION IH SCH ×2 (07:16→19:07)
[2023-01-09] MEDS: POTASSIUM CHLORIDE 20 MEQ/100 ML BAG IV SCH (08:53)
[2023-01-09] MEDS: PANTOPRAZOLE 40 MG/VIAL IVP SCH (08:59)
[2023-01-09] MEDS: Vitamin B Complex/Vit C/Folic Acid PO SCH (08:59)
[2023-01-09] MEDS: ASPIRIN 81MG CHEW TAB PO SCH (09:00)
[2023-01-09] MEDS: THIAMINE HCL 100 MG TABLET PO SCH (09:00)
[2023-01-09] MEDS: CLOPIDOGREL 75MG TAB PO SCH (09:00)
[2023-01-09] MEDS: ENOXAPARIN SODIUM 30 MG/0.3 ML SQ SCH (09:00)
[2023-01-09] MEDS: ATORVASTATIN 40 MG TABLET PO SCH (09:00)
[2023-01-09] MEDS ORDERED: POTASSIUM CHLORIDE 20 MEQ/100 ML BAG IV SCH (11:00)
[2023-01-09] MEDS ORDERED: MAGNESIUM 2GM PREMIX 50ML 50 ML IV SCH (11:00)
[2023-01-09 16:39] LABS: CREATININE 2.7 mg/dL (0.5-1.5); POTASSIUM 3.7 mmol/L (3.5-5.1)
[2023-01-10] VITALS (13 sets, daily range): BP systolic 90–161; BP diastolic 52–84; PULSE 63–75; RESP 16–20; O2SAT 95–99
[2023-01-10] MEDS: FUROSEMIDE 40MG VIAL IV SCH ×2 (03:42→15:49)
[2023-01-10] MEDS: CEFEPIME HCL 1 GM VIAL IVPB SCH ×2 (03:43→16:38)
[2023-01-10] MEDS: DOXYCYCLINE 100MG+NS 250ML IV SCH ×2 (03:43→15:49)
[2023-01-10 04:38] LABS: HEMATOCRIT 32.7 % (42-54); MEAN CORPUSCULAR HEMOGLOBIN 31.4 pg (27.0-33.0); MEAN CORPUSCULAR HGB CONC 32.7 g/dL (32.0-36.0); MEAN CORPUSCULAR VOLUME 95.9 fL (79-99); NUCLEATED RED BLOOD CELLS 0.1 % (0.0-0.19); RED BLOOD CELL COUNT(AUTO) 3.41 MIL/uL (4.50-6.20); RED CELL DISTRIBUTION WIDTH 16.5 % (11.0-15.5); WHITE BLOOD COUNT (AUTO) 17.7 K/uL (4.8-10.8)
[2023-01-10 04:57] LABS: ALBUMIN 2.5 g/dL (3.5-5.0); CREATININE 2.7 mg/dL (0.5-1.5); MAGNESIUM 2.1 mg/dL (1.80-2.40); POTASSIUM 3.9 mmol/L (3.5-5.1)
[2023-01-10] MEDS ORDERED: LACTULOSE 20 GM/30 ML UDCUP PO PRN (05:30)
[2023-01-10] MEDS ORDERED: DOCUSATE NA 100MG/10ML UDCUP ONE (05:42)
[2023-01-10] MEDS: IPRATROPIUM/ALBUTEROL SULFATE 3 ML SOLUTION IH SCH ×2 (06:35→19:14)
[2023-01-10] MEDS: BUDESONIDE 0.5 MG/2 ML INH IH SCH ×2 (06:36→19:14)
[2023-01-10] MEDS ORDERED: DOCUSATE NA 100MG/10ML UDCUP PO SCH (07:00)
[2023-01-10] MEDS: PANTOPRAZOLE 40 MG/VIAL IVP SCH (09:03)
[2023-01-10] MEDS: ASPIRIN 81MG CHEW TAB PO SCH (09:03)
[2023-01-10] MEDS: CLOPIDOGREL 75MG TAB PO SCH (09:03)
[2023-01-10] MEDS: Vitamin B Complex/Vit C/Folic Acid PO SCH (09:03)
[2023-01-10] MEDS: THIAMINE HCL 100 MG TABLET PO SCH (09:03)
[2023-01-10] MEDS: ATORVASTATIN 40 MG TABLET PO SCH (09:04)
[2023-01-10] MEDS: ENOXAPARIN SODIUM 30 MG/0.3 ML SQ SCH (09:04)
[2023-01-11] VITALS (9 sets, daily range): BP systolic 75–145; BP diastolic 48–86; PULSE 55–94; RESP 16–19; O2SAT 97
[2023-01-11] MEDS: DOXYCYCLINE 100MG+NS 250ML IV SCH ×2 (03:29→14:57)
[2023-01-11] MEDS: FUROSEMIDE 40MG VIAL IV SCH ×2 (04:03→17:49)
[2023-01-11 04:15] LABS: HEMATOCRIT 36.6 % (42-54); MEAN CORPUSCULAR HGB CONC 33.9 g/dL (32.0-36.0); MEAN CORPUSCULAR VOLUME 94.6 fL (79-99); RED BLOOD CELL COUNT(AUTO) 3.87 MIL/uL (4.50-6.20); RED CELL DISTRIBUTION WIDTH 16.2 % (11.0-15.5); WHITE BLOOD COUNT (AUTO) 24.6 K/uL (4.8-10.8)
[2023-01-11 04:39] LABS: ALBUMIN 2.8 g/dL (3.5-5.0); BILIRUBIN,TOTAL 1.1 mg/dL (0.2-1.0); CREATININE 2.8 mg/dL (0.5-1.5); MAGNESIUM 1.9 mg/dL (1.80-2.40); POTASSIUM 3.1 mmol/L (3.5-5.1); TOTAL PROTEIN, SERUM 6.9 g/dL (6.0-8.3)
[2023-01-11] MEDS: CEFEPIME HCL 1 GM VIAL IVPB SCH ×2 (04:49→17:48)
[2023-01-11] MEDS: POTASSIUM CHLORIDE 20MEQ/100ML 100 ML IV PRN (04:50)
[2023-01-11] MEDS: BUDESONIDE 0.5 MG/2 ML INH IH SCH ×2 (06:13→19:16)
[2023-01-11] MEDS: IPRATROPIUM/ALBUTEROL SULFATE 3 ML SOLUTION IH SCH ×2 (06:13→19:16)
[2023-01-11] MEDS: ATORVASTATIN 40 MG TABLET PO SCH (10:05)
[2023-01-11] MEDS: PANTOPRAZOLE 40 MG/VIAL IVP SCH (10:05)
[2023-01-11] MEDS: CLOPIDOGREL 75MG TAB PO SCH (10:05)
[2023-01-11] MEDS: DOCUSATE NA 100MG/10ML UDCUP PO SCH (10:05)
[2023-01-11] MEDS: ENOXAPARIN SODIUM 30 MG/0.3 ML SQ SCH (10:06)
[2023-01-11] MEDS: Vitamin B Complex/Vit C/Folic Acid PO SCH (10:06)
[2023-01-11] MEDS: THIAMINE HCL 100 MG TABLET PO SCH (10:06)
[2023-01-11] MEDS: ASPIRIN 81MG CHEW TAB PO SCH (10:06)
[2023-01-11] MEDS ORDERED: KCL 20 MEQ ERTAB PO ONE (10:30)
[2023-01-12] VITALS (12 sets, daily range): BP systolic 113–157; BP diastolic 66–89; PULSE 64–88; RESP 16–19; O2SAT 95–99
[2023-01-12] MEDS: DOXYCYCLINE 100MG+NS 250ML IV SCH ×2 (03:21→15:16)
[2023-01-12 04:14] LABS: BASOPHILS # (AUTO) 0.04 K/uL (0.00-0.20); BASOPHILS % (AUTO) 0.2 % (0.0-5.0); EOSINOPHILS # (AUTO) 0.37 K/uL (0.00-0.70); EOSINOPHILS % (AUTO) 1.6 % (0.0-8.0); HEMATOCRIT 35.4 % (42-54); IMMATURE GRANULOCYTE ABSOLUTE 0.43 K/uL (0-1); LYMPHOCYTES # (AUTO) 2.1 K/uL (1.0-4.8); MEAN CORPUSCULAR HGB CONC 33.3 g/dL (32.0-36.0); MEAN CORPUSCULAR VOLUME 95.9 fL (79-99); MONOCYTES # (AUTO) 1.6 K/uL (0.1-1.0); MONOCYTES % (AUTO) 6.9 % (3.0-13.0); NEUTROPHILS # (AUTO) 18.7 K/uL (1.8-7.7); NEUTROPHILS % (AUTO) 80.4 % (40.0-77.0); PLATELET COUNT (AUTO) 252 K/uL (130-400); RED BLOOD CELL COUNT(AUTO) 3.69 MIL/uL (4.50-6.20); RED CELL DISTRIBUTION WIDTH 16.4 % (11.0-15.5); WHITE BLOOD COUNT (AUTO) 23.2 K/uL (4.8-10.8)
[2023-01-12 04:39] LABS: ALBUMIN 2.6 g/dL (3.5-5.0); BILIRUBIN,TOTAL 0.8 mg/dL (0.2-1.0); CREATININE 3.1 mg/dL (0.5-1.5); MAGNESIUM 1.9 mg/dL (1.80-2.40); POTASSIUM 3.3 mmol/L (3.5-5.1); TOTAL PROTEIN, SERUM 6.4 g/dL (6.0-8.3)
[2023-01-12] MEDS: CEFEPIME HCL 1 GM VIAL IVPB SCH ×2 (05:23→17:08)
[2023-01-12] MEDS: FUROSEMIDE 40MG VIAL IV SCH ×2 (05:23→15:17)
[2023-01-12] MEDS: BUDESONIDE 0.5 MG/2 ML INH IH SCH ×2 (06:36→18:33)
[2023-01-12] MEDS: IPRATROPIUM/ALBUTEROL SULFATE 3 ML SOLUTION IH SCH ×2 (06:37→18:33)
[2023-01-12] MEDS: POTASSIUM CHLORIDE 20MEQ/100ML 100 ML IV PRN (06:40)
[2023-01-12] MEDS: Vitamin B Complex/Vit C/Folic Acid PO SCH (08:53)
[2023-01-12] MEDS: THIAMINE HCL 100 MG TABLET PO SCH (08:53)
[2023-01-12] MEDS: ATORVASTATIN 40 MG TABLET PO SCH (08:53)
[2023-01-12] MEDS: ASPIRIN 81MG CHEW TAB PO SCH (08:53)
[2023-01-12] MEDS: DOCUSATE NA 100MG/10ML UDCUP PO SCH (08:53)
[2023-01-12] MEDS: PANTOPRAZOLE 40 MG/VIAL IVP SCH (08:53)
[2023-01-12] MEDS: ENOXAPARIN SODIUM 30 MG/0.3 ML SQ SCH (08:59)
[2023-01-12] MEDS: CLOPIDOGREL 75MG TAB PO SCH (08:59)
[2023-01-12] MEDS ORDERED: KCL 20 MEQ ERTAB PO ONE ×2 (09:00→15:13)
[2023-01-12] MEDS ORDERED: MAGNESIUM 2GM PREMIX 50ML 50 ML IV SCH (09:00)
[2023-01-13 06:31] VITALS: PULSE 72; RESP 18
[2023-01-13 10:29] LABS: BILIRUBIN,TOTAL 0.8 mg/dL (0.2-1.0); CREATININE 3.1 mg/dL (0.5-1.5); POTASSIUM 3.7 mmol/L (3.5-5.1)
[2023-01-13 10:30] LABS: ALBUMIN 2.6 g/dL (3.5-5.0); TOTAL PROTEIN, SERUM 6.5 g/dL (6.0-8.3)
[2023-01-13] MEDS: DOCUSATE NA 100MG/10ML UDCUP PO SCH (10:30)
[2023-01-13] MEDS: PANTOPRAZOLE 40 MG/VIAL IVP SCH (10:30)
[2023-01-13] MEDS: ASPIRIN 81MG CHEW TAB PO SCH (10:30)
[2023-01-13] MEDS: ENOXAPARIN SODIUM 30 MG/0.3 ML SQ SCH (10:31)
[2023-01-13] MEDS: THIAMINE HCL 100 MG TABLET PO SCH (10:31)
[2023-01-13] MEDS: ATORVASTATIN 40 MG TABLET PO SCH (10:31)
[2023-01-13] MEDS: Vitamin B Complex/Vit C/Folic Acid PO SCH (10:31)
[2023-01-13] MEDS: CLOPIDOGREL 75MG TAB PO SCH (10:31)
[2023-01-13 16:45] LABS: HEMATOCRIT 35.2 % (42-54); MEAN CORPUSCULAR HEMOGLOBIN 31.9 pg (27.0-33.0); MEAN CORPUSCULAR HGB CONC 34.1 g/dL (32.0-36.0); MEAN CORPUSCULAR VOLUME 93.6 fL (79-99); RED BLOOD CELL COUNT(AUTO) 3.76 MIL/uL (4.50-6.20); RED CELL DISTRIBUTION WIDTH 16.6 % (11.0-15.5); WHITE BLOOD COUNT (AUTO) 22.5 K/uL (4.8-10.8)
== END 2023-01-13 14:20 | DRG 264 ==
LOC: EDH 11:58 → EDHIP 15:14 → 4AH 12-27 13:01 → 2BH 12-30 12:47 → 2DH 12-31 23:40 → 4BH 01-10 17:36
PROVIDERS: ADMIT Internal Medicine; ATTEND Internal Medicine
PROC: 03PY0JZ Removal of Synthetic Substitute from Upper Artery, Open Approach (ICD-10-PCS; principal; 2022-12-30 11:10)
PROC: 02HV33Z Insertion of Infusion Device into Superior Vena Cava, Percutaneous Approach (ICD-10-PCS; 2022-12-31)
DX: T82.7XXA Infection and inflammatory reaction due to other cardiac and vascular devices, implants and grafts, initial encounter (principal); A41.9 Sepsis, unspecified organism; I60.7 Nontraumatic subarachnoid hemorrhage from unspecified intracranial artery; G93.41 Metabolic encephalopathy; I50.33 Acute on chronic diastolic (congestive) heart failure; J18.9 Pneumonia, unspecified organism; J96.21 Acute and chronic respiratory failure with hypoxia; J96.22 Acute and chronic respiratory failure with hypercapnia; T81.30XA Disruption of wound, unspecified, initial encounter; L03.116 Cellulitis of left lower limb; L02.416 Cutaneous abscess of left lower limb; E46 Unspecified protein-calorie malnutrition; F10.231 Alcohol dependence with withdrawal delirium; I13.0 Hypertensive heart and chronic kidney disease with heart failure and stage 1 through stage 4 chronic kidney disease, or unspecified chronic kidney disease; I48.21 Permanent atrial fibrillation; I48.92 Unspecified atrial flutter; J44.0 Chronic obstructive pulmonary disease with (acute) lower respiratory infection; L97.929 Non-pressure chronic ulcer of unspecified part of left lower leg with unspecified severity; N17.9 Acute kidney failure, unspecified; I47.1 Supraventricular tachycardia; Z68.1 Body mass index [BMI] 19.9 or less, adult; G81.94 Hemiplegia, unspecified affecting left nondominant side; Z20.822 Contact with and (suspected) exposure to COVID-19; I49.5 Sick sinus syndrome; I73.9 Peripheral vascular disease, unspecified; I48.0 Paroxysmal atrial fibrillation; Y83.2 Surgical operation with anastomosis, bypass or graft as the cause of abnormal reaction of the patient, or of later complication, without mention of misadventure at the time of the procedure; B96.5 Pseudomonas (aeruginosa) (mallei) (pseudomallei) as the cause of diseases classified elsewhere; D64.9 Anemia, unspecified; E78.00 Pure hypercholesterolemia, unspecified; F03.90 Unspecified dementia, unspecified severity, without behavioral disturbance, psychotic disturbance, mood disturbance, and anxiety; F17.210 Nicotine dependence, cigarettes, uncomplicated; I25.10 Atherosclerotic heart disease of native coronary artery without angina pectoris; I34.0 Nonrheumatic mitral (valve) insufficiency; I44.30 Unspecified atrioventricular block; I65.21 Occlusion and stenosis of right carotid artery; J98.4 Other disorders of lung; N18.9 Chronic kidney disease, unspecified; N26.1 Atrophy of kidney (terminal); R62.7 Adult failure to thrive; T82.898A Other specified complication of vascular prosthetic devices, implants and grafts, initial encounter; Z74.01 Bed confinement status; Z79.02 Long term (current) use of antithrombotics/antiplatelets; Z79.899 Other long term (current) drug therapy; Z91.199 Patient's noncompliance with other medical treatment and regimen due to unspecified reason; Z95.1 Presence of aortocoronary bypass graft; Z95.818 Presence of other cardiac implants and grafts; Z86.73 Personal history of transient ischemic attack (TIA), and cerebral infarction without residual deficits
CPT/HCPCS: 36415; 36600; 70450; 71045; 74230; 75635; 76770; 80048; 80053; 80202; 81001; 82435; 82550; 82803; 82947; 82948; 83540; 83550; 83605; 83735; 83880; 84100; 84132; 84145; 84295; 84443; 84550; 85018; 85025; 85027; 85610; 85730; 86140; 86850; 86900; 86901; 87040; 87070; 87076; 87077; 87088; 87186; 87635; 92526; 92610; 92611; 93005; 93306; 93971; 94640; 94660; 94664; 97039; A4344; C1751; C1758; C1894; C9113; G0378; J0171; J0330; J0360; J0610; J0690; J0692; J1100; J1644; J1650; J1756; J1940; J2001; J2060; J2175; J2270; J2405; J2543; J2550; J2704; J2710; J2920; J3010; J3370; J3411; J3475; J3480; J3490; J7070; Q9967; A4216; A4222; A4223; A4600; A4649; A6219; A6446; C1713